=== PATIENT | male | born 1955 | race Two or more races ===

== ENCOUNTER → 2019-04-21 | Emergency (ER) | payer SELFPAY ==
[~2019-04-21] VITALS: Ht 160 cm; Wt 68.0 kg
[2019-04-21 11:16] VITALS: BP 110/64
--- NOTE | 2019-04-21 12:30 | Emergency Room Report ---
History of Present Illness General Chief Complaint: Alcohol Intoxication Source: Patient Present Illness HPI Patient presents with paramedics for reports of public intoxication Upon arrival patient is asking to be let go home denies any headache denies any chest pain reports that he is hungry Denies any vomiting or diarrhea denies any abdominal pain reports that he drank heavier than usual yesterday Allergies: Coded Allergies: No Known Allergies (Unverified , 04/21/19) Patient History Past Medical History: see triage record Reviewed Nursing Documentation: PMH: Agreed; PSxH: Agreed Nursing Documentation-PMH Past Medical History: No Stated History Review of Systems All Other Systems: negative except mentioned in HPI Physical Exam Vital Signs Date Time Temp Pulse Resp B/P (MAP) Pulse Ox O2 Delivery O2 Flow Rate FiO2 04/21/19 11:16 97.9 90 18 110/64 (79) 99 Room Air Sp02 EP Interpretation: reviewed, normal General Appearance: no apparent distress Head: normocephalic, atraumatic Eyes: bilateral eye PERRL, bilateral eye EOMI ENT: normal pharynx Neck: supple Respiratory: lungs clear, no respiratory distress, no retraction Cardiovascular #1: regular rate, rhythm Gastrointestinal: non tender, soft Musculoskeletal: normal inspection Neurologic: alert, oriented x3, responsive Psychiatric: normal inspection Skin: no rash Lymphatic: no adenopathy Medical Decision Making Diagnostic Impression: Primary Impression: Alcohol abuse ER Course Upon initial presentation patient has abnormal gait and stumbling while attempting to ambulate to the [facility] Patient was allowed to rest is otherwise Neurologically benign exam awake alert with GCS 15 While patient was resting and pending further sobering It was reported that the patient had eloped from the emergency room Security was at bedside and nursing at bedside as well and they reported patient ambulating without any deficit and requesting to go home I did not have a final evaluation of the patient Last Vital Signs Date Time Temp Pulse Resp B/P (MAP) Pulse Ox O2 Delivery O2 Flow Rate FiO2 04/21/19 11:16 97.9 90 18 110/64 (79) 99 Room Air Status: improved Disposition: ELOPED Condition: Improved Precious Nunez DO Apr 21, 2019 12:30
== END | disposition left against medical advice (07) ==
LOC: EDBD 11:22 → EMR 12:15
DX: F10.10 Alcohol abuse, uncomplicated (principal)
CPT/HCPCS: 99282